=== PATIENT | male | born 1990 | race Caucasian/White ===

== ENCOUNTER 2016-09-24 23:38 | Emergency (ER) | payer OTHER ==
[2016-09-24 23:56] VITALS: BP 116/82; PULSE 95; TEMP 98.9; BMI 25.7
[2016-09-25] MEDS ORDERED: SODIUM CHLORIDE 1,000 ML IV STA ×2 (00:04→00:32)
--- NOTE | 2016-09-25 00:05 | PDOC ---
History of Present Illness - General Chief Complaint: Pain, Acute Stated Complaint: ABDOMINAL PAIN, VOMITING, DIARRHEA Time Seen by Provider: 09/25/16 00:03 - History of Present Illness Initial Comments: 09/25/16 00:41 This 25-year-old man with a history of nonspecific colitis but no other significant past medical history presents with 2 day history of lower abdominal pain, intermittent at first, now constant and severe. He also developed diarrhea soon after the onset of these lower abdominal pain. He has had multiple episodes of watery brown stool. No blood or mucus present. He also had 2 episodes of vomiting yesterday (bilious). Vomiting has resolved today patient has been able to tolerate brought by mouth without nausea or vomiting. He has no fever/chills. He has no known contacts with people suffering similar symptoms. He states that over the last several days he has had many meals prepared outside. No recent travel. Patient had similar episode of acute diarrhea approximately a year ago, during which fever was present. He was seen in an ER and told it was infectious in origin. Symptoms resolved after several days. Several years ago, patient had chronic abdominal pain that was diagnosed as colitis. Patient states that he is never needed treatment of this colitis and has never had colonoscopy. Patient has a general medical doctor but is not been seen by a fitness center attendant in the past. On no medications No known ALLERGIES Past History - Past Medical History Allergies/Adverse Reactions: Allergies Allergy/AdvReac Type Severity Reaction Status Date / Time No Known Allergies Allergy Verified 09/24/16 23:44 Home Medications: Ambulatory Orders Metronidazole [Flagyl -] 500 mg PO TID #30 tablet 09/25/16 Sulfamethoxazole/Trimethoprim [Bactrim Ds Tablet] 1 each PO BID #20 tablet 09/25 Other medical history: DENIES - Psycho/Social/Smoking Cessation Hx Anxiety: No Suicidal Ideation: No Smoking History: Never smoked Have you smoked in the past 12 months: No Information on smoking cessation initiated: No Hx Alcohol Use: No Drug/Substance Use Hx: No Substance Use Type: None Review of Systems - Review of Systems Able to Perform ROS?: Yes Comments:: 12 point review of systems is negative except for what is noted in the history of present illness *Physical Exam - Vital Signs Last Vital Signs Temp Pulse Resp BP Pulse Ox 98.9 F 95 H 18 116/82 99 09/24/16 23:52 09/24/16 23:52 09/24/16 23:52 09/24/16 23:52 09/24/16 23:52 - Physical Exam Comments: Adult male, alert and oriented 3, in mild distress secondary to lower abdominal pain Vital signs as noted HEAD: No contusions, abrasions or lacerations of the scalp; no facial ecchymosis , deformities or tenderness EYES: Pupils equal, round and reactive to light, extraocular movements intact, sclera anicteric, conjunctiva clear PHARYNX: No erythema, exudate or edema; mucous membranes dry NECK: Supple, nontender, no masses or bruits LUNGS: Clear to auscultation bilaterally CARDIAC: S1, S2 normal; no extra sounds, rubs or murmurs heard ABDOMEN: Hyperactive bowel sounds; soft, moderate left lower quadrant/ suprapubic tenderness; mild rebound tenderness present. No masses or organomegaly EXTREMITIES: Normal range of motion, no edema,deformity or tenderness NEUROLOGICAL: Cranial nerves II through XII grossly intact. Normal speech, normal gait.moving all 4 extremities equally, Sensation intact in all extremities. PSYCH: Normal mood, normal affect. SKIN: Warm, Dry, normal turgor, no rashes or lesions noted. ED Treatment Course - LABORATORY CBC & Chemistry Diagram: 09/24/16 23:56 09/24/16 23:56 Progress Note - Progress Note Progress Note: CBC/chemistry profile/lipase evaluated 1 L normal saline IV as well as 30 mg Toradol IV for analgesia administered. Laboratory evaluation reveals a white blood cell count of 13,500; otherwise, values are essentially normal. Because of the patient's extensive history of diarrhea, an additional liter of normal saline given IV Because of the patient's significant suprapubic and left lower quadrant tenderness, abdominal/pelvic CT with IV contrast ordered CT interpreted by imaging carton stenciler shows mild to moderate sigmoid inflammation with associated diverticulosis consistent with acute diverticulitis. There is no abscess or perforation evident. Results discussed with patient and family; he feels significantly better after IV hydration and IV Toradol. He has no further nausea. Patient will be given his antibiotics by mouth. Bactrim DS/Flagyl 500 mg given orally and prescription for 10 day course will be sent to pharmacy. Patient has recently moved to this area from [place] and does not have any medical follow-up in this region. Referral information for Dr. Sánchez (as well as Dr. Rawls/Dr[facility] group/) given to the patient. He will follow- up with fitness center attendant within the next 5 days. If he develops persistent severe pain/high fever/vomiting he should return to the ER. *DC/Admit/Observation/Transfer Diagnosis at time of Disposition: Diverticulitis Qualifiers: Diverticulitis site: large intestine Diverticulitis bleeding: without bleeding Diverticulitis complication: without perforation or abscess Qualified Code(s): K57.32 - Diverticulitis of large intestine without perforation or abscess without bleeding - Discharge Dispostion Disposition: HOME Condition at time of disposition: Stable - Prescriptions Prescriptions: Sulfamethoxazole/Trimethoprim [Bactrim Ds Tablet] 1 each PO BID #20 tablet Metronidazole [Flagyl -] 500 mg PO TID #30 tablet - Referrals Referrals: Ayaz Sánchez MD [Staff Physician] - 2 Days - Patient Instructions Printed Discharge Instructions: Diverticulitis Additional Instructions: Light diet Continue plenty of fluids as tolerated Bactrim DS twice a day for 10 days Flagyl 500 mg 3 times a day for 10 days Ibuprofen/naproxen/acetaminophen as needed for pain Follow-up with fitness center attendant within the next 5 days Return to ER if you have severe pain/vomiting/high fever
[2016-09-25] MEDS ORDERED: KETOROLAC TROMETHAMINE 30 MG/1 ML VIAL IVPUSH ONE (00:32)
[2016-09-25 00:39] LABS: BASOPHIL 0.3 % (0-2.0); EOSINOPHIL 0.7 % (0-4.5); MCH 27.2 pg (25.7-33.7); MCHC 32.6 g/dl (32.0-35.9); MEAN CELL VOLUME 83.4 fl (80-96); MEAN PLT VOLUME 8.6 fl (7.5-11.1); NEUTROPHILS 67.4 % (42.8-82.8); PLATELET COUNT 296 K/MM3 (134-434); RDW 13.9 % (11.9-15.9); WHITE BLOOD COUNT 13.6 K/mm3 (4.0-10.0)
[2016-09-25 00:41] LABS: URINE APPEARANCE CLEAR; URINE BILIRUBIN NEGATIVE (NEGATIVE); URINE BLOOD NEGATIVE (NEGATIVE); URINE COLOR YELLOW; URINE GLUCOSE (UA) NEGATIVE (NEGATIVE); URINE KETONE NEGATIVE (NEGATIVE); URINE LEUK ESTERASE NEGATIVE (NEGATIVE); URINE NITRITE NEGATIVE (NEGATIVE); URINE PROTEIN NEGATIVE (NEGATIVE); URINE UROBILINOGEN NEGATIVE E.U./dl (0.2-1.0)
[2016-09-25 01:01] LABS: ALBUMIN 4.1 g/dl (3.4-5.0); ALK PHOS 103 U/L (45-117); ANION GAP 13 (8-16); BILIRUBIN,TOTAL 0.9 mg/dL (0.2-1.0); CALCIUM 8.5 mg/dL (8.5-10.1); CO2 24 mmol/L (21-32); CREATININE 0.9 mg/dL (0.7-1.3); GLUCOSE,RANDOM 86 mg/dL (74-106); SGOT/AST 16 U/L (15-37); SGPT/ALT 29 U/L (12-78); TOT PROT 7.6 g/dl (6.4-8.2)
[2016-09-25] MEDS ORDERED: metroNIDAZOLE 250 MG TABLET ONE (02:29)
[2016-09-25] MEDS ORDERED: SULFAMETHOXAZOLE/TRIMETHOPRIM 800MG/160MG D.S. TABLET ONE (02:29)
[2016-09-25] MEDS ORDERED: SULFAMETHOXAZOLE/TRIMETHOPRIM 800MG/160MG D.S. TABLET PO ONE (02:35)
[2016-09-25] MEDS ORDERED: metroNIDAZOLE 500 MG TABLET PO ONE (02:35)
== END 2016-09-25 02:43 | disposition home or self-care (01) ==
LOC: FER 23:38
PROC: 3E0333Z Introduction of Anti-inflammatory into Peripheral Vein, Percutaneous Approach (ICD-10-PCS; principal; 2016-09-24)
PROC: 3E0337Z Introduction of Electrolytic and Water Balance Substance into Peripheral Vein, Percutaneous Approach (ICD-10-PCS; 2016-09-24)
DX: K57.32 Diverticulitis of large intestine without perforation or abscess without bleeding (principal)
CPT/HCPCS: 36415; 74177-TC; 80053; 81003; 83690; 85025; 99282-25

== ENCOUNTER 2019-02-02 17:42 | Emergency (ER) | payer OTHER ==
[2019-02-02] MEDS ORDERED: SODIUM CHLORIDE 1,000 ML IV STA (17:44)
[2019-02-02] MEDS ORDERED: ONDANSETRON 4 MG/2 ML VIAL IVPUSH ONE (17:53)
[2019-02-02] MEDS ORDERED: morphine CARPU-JECT 4 MG/1 ML DISP.SYRIN IVPUSH ONE (17:53)
--- NOTE | 2019-02-02 17:55 | PDOC ---
Documentation entered by Marine Phelan SCRIBE, acting as scribe for Helena Whitney MD. Helena Whitney MD: This documentation has been prepared by the Zhane marie Daisy, SCRIBE, under my direction and personally reviewed by me in its entirety. I confirm that the documentation accurately reflects all work, treatment, procedures, and medical decision making performed by me. History of Present Illness - General Chief Complaint: Pain Stated Complaint: ABD PAIN Time Seen by Provider: 02/02/19 17:44 History Source: Patient Exam Limitations: No Limitations - History of Present Illness Initial Comments: 02/02/19 17:58 The patient is a 28 year old male with a significant PMH of diverticulitis and nonspecific colitis who presents to the emergency department sent in by an urgent care for further evaluation of left lower quadrant pain that began today. Patient reports the left lower quadrant pain is nonradiating, sharp, intermittent and exacerbated with sitting or movement. He notes the last episode of diverticulitis he had was in June 2018, that improved after antibiotic course. Denies any abdominal surgeries. of note, pt sent in from urgent care for CT a/p to eval for possible complicated diverticulitis and "IV medications and antibiotics." Denies any blood in the stool, urinary symptoms, testicular pain, scrotal swelling, fever, chills, chest pain, shortness of breath, nausea, vomiting. No sick contacts or travel. No new changes in medications. ?suspicious food intake - though he ate out last night with family with large meal of rice, cake , coconut seafood. Allergies: NKA Past surgical history: None reported. Social history: No reported alcohol, drug or cigarette use. 02/02/19 18:13 02/02/19 18:51 Past History - Past Medical History Allergies/Adverse Reactions: Allergies Allergy/AdvReac Type Severity Reaction Status Date / Time No Known Allergies Allergy Verified 02/02/19 17:45 Home Medications: Ambulatory Orders Sulfamethoxazole/Trimethoprim [Bactrim Ds -] 1 tab PO BID #14 tablet 02/02/19 metroNIDAZOLE [Flagyl -] 500 mg PO TID #21 tablet 02/02/19 COPD: No GI Disorders: Yes (DIVERTICULITIS) - Suicide/Smoking/Psychosocial Hx Smoking History: Never smoked Have you smoked in the past 12 months: No Information on smoking cessation initiated: No Hx Alcohol Use: No Drug/Substance Use Hx: No Substance Use Type: None Review of Systems - Review of Systems Able to Perform ROS?: Yes Comments:: 02/02/19 17:58 Constitutional: no fevers or chills. HEENT: no headache or dizziness. No congestion. No visual/hearing disturbances. CVS: no cp or syncope. Resp: no sob. No cough. Gastrointestinal: no nausea or vomiting. (+) left lower quadrant pain. Genitourinary: no urinary sx, hematuria. MUSCULOSKELETAL: No joint pain and swelling. No neck or back pain. SKIN: no redness or skin changes, no discharge, no rash. No wounds. Hematologic: no easy bruising/bleeding. NEUROLOGIC: No headache, dizziness, LOC or altered mental status. No weakness, numbness or tingling. Psych: no anxiety or depression Allergic/Immunologic: no allergies All other systems reviewed and negative, or as documented in HPI. *Physical Exam - Vital Signs Last Vital Signs Temp Pulse Resp BP Pulse Ox 97.2 F L 77 18 117/58 L 98 02/02/19 17:42 02/02/19 17:42 02/02/19 17:42 02/02/19 17:42 02/02/19 17:42 - Physical Exam Comments: 02/02/19 17:59 Physical exam: General: Well appearing, awake and alert, NAD. HEENT: NCAT, PERRL, EOMI, clear conjunctiva, anicteric, moist mucus membranes, clear oropharynx, no oral lesions.. Neck: neck supple, FROM Resp: CTAB, normal and even respirations, no respiratory distress CVS: RRR, no murmurs, 2+ peripheral pulses throughout, no peripheral edema Abdomen: soft, ND, no peritoneal signs. (+) Left lower quadrant tenderness. no rebound or guarding no CVAT no flank tenderness. Back: nontender, normal inspection and ROM MSK: no edema, GOLDBERG x4, ROM intact. No clubbing or cyanosis. normal bulk and tone. Neuro: alert, no focal neuro deficits. Skin: warm and well perfused, cap refill <2 sec, normal color 02/02/19 18:47 ED Treatment Course - LABORATORY CBC & Chemistry Diagram: 02/02/19 18:00 02/02/19 18:00 - RADIOLOGY Radiology Studies Ordered: Category Date Time Status ABDOMEN & PELVIS CT WITH CONTR [CT] Stat CT Scan 02/02/19 17:52 Ordered Medical Decision Making - Medical Decision Making 02/02/19 17:54 See HPI for details Vital signs reviewed, wnl. DDx abdominal pain: Renal colic, biliary colic, metabolic/electrolyte derangements. GERD, PUD, esophageal spasm, pancreatitis, hepatitis, constipation , colitis, gastroenteritis, cholecystitis, UTI, pyelonephritis, ileus, SBO, medication side effect, hernia, appendicitis, diverticulitis, mesenteric ischemia. msk strain, mesenteric adenitis, psoas abscess. Prior notes reviewed, including admissions, discharges and consultations. laboratory results and imaging reviewed, basic labs and lytes notable for mild leukocytosis of 15K, likely infection vs inflammation; lytes normal UA_neg for infection ED course - IVF, analgesia, zofran, reassess - sent in from urgent care for CT to eval for perf vs abscess vs complicated diverticulitis. pt does appear well, nontoxic, analgesia with effect and hydration. s/o pending CT a/p IV only to eval for diverticulitis or alternative abdominal etiology. 02/02/19 18:15 02/02/19 18:58 02/03/19 07:17 *DC/Admit/Observation/Transfer Diagnosis at time of Disposition: Diverticulitis - Discharge Dispostion Disposition: HOME Condition at time of disposition: Stable - Prescriptions Prescriptions: metroNIDAZOLE [Flagyl -] 500 mg PO TID #21 tablet Sulfamethoxazole/Trimethoprim [Bactrim Ds -] 1 tab PO BID #14 tablet - Referrals - Patient Instructions Printed Discharge Instructions: DI for Diverticulitis Additional Instructions: You have diverticulitis. Take the antibiotics as prescribed to treat it. If you experience worsening abdominal pain, fevers, vomiting, or any other concerning symptoms, return to the ER immediately. Otherwise, follow up with your primary doctor within 1 week. - Post Discharge Activity
[2019-02-02 17:59] VITALS: BP 117/58; PULSE 77; TEMP 97.2; BMI 23.7
[2019-02-02] MEDS ORDERED: ONDANSETRON 4 MG/2 ML VIAL ONE (18:08)
[2019-02-02] MEDS ORDERED: morphine SULFATE 4 MG/ML VIAL ONE (18:08)
[2019-02-02 18:43] LABS: EOS % 0.5 % (0-4.5); HEMATOCRIT 43.1 % (35.4-49); HEMOGLOBIN 14.6 GM/dl (11.7-16.9); LYMPH % 21.7 % (8-40); MCH 29.3 pg (25.7-33.7); MCHC 33.9 g/dl (32.0-35.9); MEAN CELL VOLUME 86.6 fl (80-96); MEAN PLT VOLUME 8.4 fl (7.5-11.1); MONO % 5.2 % (3.8-10.2); NEUT % 72.6 % (42.8-82.8); PLATELET COUNT 325 K/MM3 (134-434); RBC 4.97 M/mm3 (4.00-5.60); RDW 13.1 % (11.9-15.9); WHITE BLOOD COUNT 15.2 K/mm3 (4.0-10.8)
[2019-02-02 18:46] LABS: ALBUMIN 4.7 g/dl (3.4-5.0); BILIRUBIN,TOTAL 0.7 mg/dl (0.2-1); CALCIUM 9.7 mg/dl (8.5-10); CREATININE 0.7 mg/dl (0.55-1.3); POTASSIUM 3.9 mmol/L (3.5-5.1); TOT PROT 8.1 g/dl (6.4-8.2)
[2019-02-02 18:47] LABS: EPITHELIAL CELLS FEW /hpf
[2019-02-02] MEDS ORDERED: SODIUM CHLORIDE 0.9% 500 ML INFUS.BAG IV ONE (18:59)
--- NOTE | 2019-02-02 21:13 | PDOC ---
*Physical Exam - Vital Signs Last Vital Signs Temp Pulse Resp BP Pulse Ox 97.2 F L 77 18 117/58 L 98 02/02/19 17:42 02/02/19 17:42 02/02/19 17:42 02/02/19 17:42 02/02/19 17:42 ED Treatment Course - LABORATORY CBC & Chemistry Diagram: 02/02/19 18:00 02/02/19 18:00 - ADDITIONAL ORDERS Additional order review: Laboratory Results 02/02/19 02/02/19 02/02/19 18:00 18:00 18:00 Sodium 138 Potassium 3.9 Chloride 101 Carbon Dioxide 23 Anion Gap 14 BUN 12 Creatinine 0.7 Est GFR (CKD-EPI)AfAm 147.81 Est GFR (CKD-EPI)NonAf 127.53 Random Glucose 85 Lactic Acid 1.0 Calcium 9.7 Total Bilirubin 0.7 AST 25 ALT 34 Alkaline Phosphatase 91 Total Protein 8.1 Albumin 4.7 Lipase 133 Urine Color Yellow Urine Appearance Clear Urine pH 5.0 Urine Protein Negative Urine Glucose (UA) Negative Urine Ketones Negative Urine Blood Trace-intact Urine Nitrite Negative Urine Bilirubin Negative Urine Urobilinogen 0.2 Ur Leukocyte Esterase Negative Urine RBC 2-5 Urine WBC 0-2 Ur Transition Epith Cell Few 02/02/19 18:00 RBC 4.97 MCV 86.6 MCHC 33.9 RDW 13.1 MPV 8.4 Neutrophils % 72.6 Lymphocytes % 21.7 Monocytes % 5.2 Eosinophils % 0.5 Basophils % 0.0 - Medications Given in the ED: ED Medications Discontinued Medications Generic Name Dose Route Start Last Admin Trade Name Freq PRN Reason Stop Dose Admin Sodium Chloride 1,000 mls @ 1,000 mls/hr 02/02/19 17:44 02/02/19 18:00 Normal Saline - IV 02/02/19 18:43 1,000 mls/hr ASDIR STA Administration Morphine Sulfate 4 mg 02/02/19 17:53 02/02/19 18:12 Morphine Injection - IVPUSH 02/02/19 17:54 4 mg ONCE ONE Administration Ondansetron HCl 4 mg 02/02/19 17:53 02/02/19 18:10 Zofran Injection IVPUSH 02/02/19 17:54 4 mg ONCE ONE Administration Sodium Chloride 1,000 ml 02/02/19 18:59 02/02/19 19:00 Normal Saline - IV 02/02/19 19:00 1,000 ml ONCE ONE Administration Medical Decision Making - Medical Decision Making 02/02/19 21:11 Signout received at 7PM 28 M with LLQ pain CT scan shows acute sigmoid diverticulitis. Pt reassessed - pain is controlled Pt tolerating PO Will DC with bactrim/flagyl Pt is well appearing, with normal vitals. Clinically stable for DC at this time. I discussed the physical exam findings, ancillary test results and final diagnoses with the patient. I answered all of the patient's questions. The patient was satisfied with the care received and felt comfortable with the discharge plan and treatment plan. The patient agrees to follow up with the primary care physician within 24-72 hours. *DC/Admit/Observation/Transfer Diagnosis at time of Disposition: Diverticulitis - Discharge Dispostion Disposition: HOME Condition at time of disposition: Stable - Referrals - Patient Instructions Printed Discharge Instructions: DI for Diverticulitis Additional Instructions: You have diverticulitis. Take the antibiotics as prescribed to treat it. If you experience worsening abdominal pain, fevers, vomiting, or any other concerning symptoms, return to the ER immediately. Otherwise, follow up with your primary doctor within 1 week. - Post Discharge Activity - Attestations Physician Attestion: 02/02/19 21:13 I, Dr. Dipak Boyd MD, attest that this document has been prepared under my direction and personally reviewed by me in its entirety. I further attest, that it accurately reflects all work, treatment, procedures and medical decision -making performed by me.
[2019-02-02] MEDS ORDERED: metroNIDAZOLE 250 MG TABLET PO ONE (21:15)
[2019-02-02] MEDS ORDERED: SULFAMETHOXAZOLE/TRIMETHOPRIM 800MG/160MG D.S. TABLET PO ONE (21:15)
[2019-02-02] MEDS ORDERED: SULFAMETHOXAZOLE/TRIMETHOPRIM 800MG/160MG D.S. TABLET ONE (21:17)
[2019-02-02] MEDS ORDERED: metroNIDAZOLE 250 MG TABLET ONE (21:17)
== END 2019-02-02 21:27 | disposition home or self-care (01) ==
LOC: FER 17:42
PROC: 3E0337Z Introduction of Electrolytic and Water Balance Substance into Peripheral Vein, Percutaneous Approach (ICD-10-PCS; principal; 2019-02-02)
PROC: 3E033GC Introduction of Other Therapeutic Substance into Peripheral Vein, Percutaneous Approach (ICD-10-PCS; 2019-02-02)
PROC: 3E033NZ Introduction of Analgesics, Hypnotics, Sedatives into Peripheral Vein, Percutaneous Approach (ICD-10-PCS; 2019-02-02)
DX: K57.92 Diverticulitis of intestine, part unspecified, without perforation or abscess without bleeding (principal)
CPT/HCPCS: 36415; 74177-TC; 80053; 81003; 81015; 83605; 83690; 85025; 99284-25; J7030

== ENCOUNTER 2019-08-29 23:54 | Emergency (ER) | payer OTHER ==
[2019-08-30 00:06] VITALS: BP 120/76; PULSE 70; TEMP 97.8; BMI 25.7
--- NOTE | 2019-08-30 00:17 | PDOC ---
History of Present Illness - General Chief Complaint: Pain Stated Complaint: ABDOMINAL PAIN Time Seen by Provider: 08/30/19 00:03 History Source: Patient Exam Limitations: No Limitations - History of Present Illness Initial Comments: 08/30/19 03:25 This is a 28-year-old male who comes in complaining of left lower quadrant pain x1 day. Patient has had a history of diverticulitis x2 in the past. Once in September once in January end of this year. Patient says similar symptoms as when he had diverticulitis in the past. Patient otherwise denies any complaints. Allergies: as per nursing notes Past Medical History: none Social history: Lives with family. No smoking. No alcohol. No illicit drugs. Surgical history: None General: No fevers or chills, no weakness, no weight loss HEENT: No change in vision. No sore throat,. No ear pain CardioVascular: no chest discomfort. No shortness of breath Respiratory:No cough, or wheezing. Gastrointestinal: no nausea, vomiting, diarrhea or constipation, No rectal bleeding, left lower quadrant abdominal pain as per HPI Genitourinary: No dysuria, hematuria, or frequency Musculoskeletal: No joint or muscle pain or swelling Neurologic: No headache, vertigo, dizziness or loss of consciousness Psychiatric: nor depression Skin: No rashes or easy bruising Endocrine: no increased thirst or abnormal weight change Allergic: no skin or latex allergy All other systems reviewed and normal Exam: General: Well-nourished well-developed individual, no acute distress HEENT: Throat: Normal, tonsils normal, no erythema or exudate Neck: Supple, no meningeal signs, no lymphadenopathy Eyes::Pupils equal reactive and round, extraocular motion intact Chest: Nontender to palpation Cardiac: S1-S2 normal, regular rate and rhythm, no murmurs rubs or gallops Respiratory: Lungs clear to auscultation bilateral Abdomen: Soft, nondistended, normal bowel sounds, there is tenderness on palpation left lower quadrant, there is no guarding or rebound. Extremities: Warm, dry, no cyanosis, clubbing, or edema Skin: No rashes Neuro: Alert and oriented x3, CN II - XII intact, nonfocal exam with normal strength, normal sensation, normal reflexes, normal gait, Psych: Normal mood and affect assessment and plan: This is a 28-year-old male with Left lower quadrant abdominal pain x1 day. Work-up initiated including CBC, comp, CAT scan abdomen and pelvis. Patient does have an elevated white count and a CAT scan that shows acute diverticulitis. Patient is able to tolerate p.o.'s Patient given IV Zosyn and Flagyl Patient discharged home on Bactrim and Flagyl with diverticulitis diet Pt is well appearing, with normal vitals. Clinically stable for DC at this time. I discussed the physical exam findings, ancillary test results and final diagnoses with the patient. I answered all of the patient's questions. The patient was satisfied with the care received and felt comfortable with the discharge plan and treatment plan. The patient agrees to follow up with the primary care physician within 24-72 hours. Past History - Past Medical History Allergies/Adverse Reactions: Allergies Allergy/AdvReac Type Severity Reaction Status Date / Time No Known Allergies Allergy Verified 02/02/19 17:45 Home Medications: Ambulatory Orders Sulfamethoxazole/Trimethoprim [Bactrim Ds -] 1 tab PO BID #20 tablet 08/30/19 metroNIDAZOLE [Flagyl -] 500 mg PO BID #20 tablet 08/30/19 COPD: No GI Disorders: Yes (DIVERTICULITIS) - Psycho Social/Smoking Cessation Hx Smoking History: Never smoked Have you smoked in the past 12 months: No Information on smoking cessation initiated: No Hx Alcohol Use: No Drug/Substance Use Hx: No Substance Use Type: None *Physical Exam - Vital Signs Last Vital Signs Temp Pulse Resp BP Pulse Ox 97.8 F 70 18 120/76 100 08/30/19 00:03 08/30/19 00:03 08/30/19 00:03 08/30/19 00:03 08/30/19 00:03 ED Treatment Course - LABORATORY CBC & Chemistry Diagram: 08/30/19 01:03 08/30/19 01:03 Discharge - Discharge Information Problems reviewed: Yes Clinical Impression/Diagnosis: Diverticulitis large intestine Qualifiers: Diverticulitis complication: without perforation or abscess Condition: Fair Disposition: HOME - Admission No - Follow up/Referral - Patient Discharge Instructions Additional Instructions: Take Levaquin 1 tablet a day for the next 10 days. Take Flagyl 1 tablet twice a day for the next 10 days. Return to the emergency department immediately with ANY new, persistent or worsening symptoms. Continue any medications as previously prescribed by your physician. You should follow up with your primary doctor as soon as possible regarding today's emergency department visit. . Please make sure your doctor reviews the results of your emergency evaluation. Thank you for coming to the Emergency Department today for your care. It was a pleasure to see you today. Please note that your evaluation is INCOMPLETE until you follow-up with your doctor. A diverticulitis diet is recommend as part of a short-term treatment plan for acute diverticulitis. Diverticula are small, bulging pouches that can form in the lining of the digestive system. They're found most often in the lower part of the large intestine (colon). This condition is called diverticulosis. In some cases, one or more of the pouches become inflamed or infected. This is known as diverticulitis. Mild cases of diverticulitis are usually treated with antibiotics and a diverticulitis diet, which includes clear liquids and low-fiber foods. More- severe cases typically require hospitalization. A diverticulitis diet is a temporary measure to give your digestive system a chance to rest. Oral intake is usually reduced until bleeding and diarrhea subside. A diverticulitis diet starts with only clear liquids for a few days. Examples of items allowed on a clear liquid diet include: Broth Fruit juices without pulp, such as apple juice Ice chips Ice pops without bits of fruit or fruit pulp Gelatin Water Tea or coffee without cream As you start feeling better, your doctor will recommend that you slowly add low- fiber foods. Examples of low-fiber foods include: Canned or cooked fruits without skin or seeds Canned or cooked vegetables such as green beans, carrots and potatoes (without the skin) Eggs, fish and poultry Refined white bread Fruit and vegetable juice with no pulp Low-fiber cereals Milk, yogurt and cheese eat yogurt at least once a day as it will help replenish the healthy bacteria in your intestines that the antibiotics kill. White rice, pasta and noodles You should feel better within two or three days of starting the diet and antibiotics. If you haven't started feeling better by then, call your doctor. Also contact your doctor if: You develop a fever Your abdominal pain is worsening You're unable to keep clear liquids down These may indicate a complication that requires hospitalization. The diverticulitis diet has few risks. However, continuing a clear liquid diet for more than a few days can lead to weakness and other complications, since it doesn't provide enough of the nutrients your body needs. For this reason, I recommend you to transition to the low fiberl diet as soon as you can tolerate it and then back to a normal diet once you finish the antibiotics. - Post Discharge Activity
[2019-08-30 01:16] LABS: BASO % 0.2 % (0-2.0); EOS % 0.7 % (0-4.5); HEMATOCRIT 45.5 % (35.4-49); HEMOGLOBIN 15.1 GM/dL (11.7-16.9); LYMPH % 30.5 % (8-40); MCH 28.2 pg (25.7-33.7); MCHC 33.2 g/dl (32.0-35.9); MEAN CELL VOLUME 84.9 fl (80-96); MEAN PLT VOLUME 8.8 fl (7.5-11.1); MONO % 6.1 % (3.8-10.2); NEUT % 62.5 % (42.8-82.8); PLATELET COUNT 323 K/MM3 (134-434); RBC 5.35 M/mm3 (4.00-5.60); RDW 13.6 % (11.9-15.9); WHITE BLOOD COUNT 14.3 K/mm3 (4.0-10.0)
[2019-08-30 01:39] LABS: ALBUMIN 4.2 g/dl (3.4-5.0); BILIRUBIN,TOTAL 0.4 mg/dL (0.2-1); BLOOD UREA NITROGEN 12.2 mg/dL (7-18); CALCIUM 9.4 mg/dL (8.5-10.1); CREATININE 0.8 mg/dL (0.55-1.3); TOT PROT 8.3 g/dl (6.4-8.2)
[2019-08-30] MEDS ORDERED: PIPERACILLIN/TAZOB 4.5 GM 4.5 GM in DEXTROSE 5%-WATER 100 ML IVPB ONE (02:54)
[2019-08-30] MEDS ORDERED: PIPERACILLIN/TAZOBACTAM 4.5 GM VIAL IVPB ONE (02:56)
[2019-08-30] MEDS ORDERED: ACETAMINOPHEN INJECTION 100 ML IVPB ONE (02:59)
[2019-08-30] MEDS ORDERED: ACETAMINOPHEN 1000 MG/100 ML VIAL (NON FORMULARY) IVPB ONE (03:10)
== END 2019-08-30 03:57 | disposition home or self-care (01) ==
LOC: FER 23:54
PROC: 3E033NZ Introduction of Analgesics, Hypnotics, Sedatives into Peripheral Vein, Percutaneous Approach (ICD-10-PCS; principal; 2019-08-29)
PROC: 3E03329 Introduction of Other Anti-infective into Peripheral Vein, Percutaneous Approach (ICD-10-PCS; 2019-08-29)
DX: K57.92 Diverticulitis of intestine, part unspecified, without perforation or abscess without bleeding (principal)
CPT/HCPCS: 36415; 74177-TC; 80053; 85025; 99283-25; J0131